=== PATIENT | male | born 1955 | race Caucasian/White ===

== ENCOUNTER 2023-06-24 05:34 | Emergency (ER) | payer MEDICAID, SELFPAY ==
[2023-06-24 05:35] VITALS: BP 132/79; PULSE 111; RESP 26; TEMP 35.5; O2SAT 96; BMI 27.1
[2023-06-24 05:42] VITALS: BP 132/79; PULSE 111; RESP 23; TEMP 35.5; O2SAT 96
--- NOTE | 2023-06-24 05:42 | EKG12_ITS ---
Test Reason : SOB Blood Pressure : / mmHG Vent. Rate : 102 BPM Atrial Rate : 102 BPM P-R Int : 176 ms QRS Dur : 068 ms QT Int : 350 ms P-R-T Axes : 047 002 048 degrees QTc Int : 456 ms Sinus tachycardia Septal infarct , age undetermined Abnormal ECG Confirmed by DEWAYNE GUTIERREZ, CELIA ([id number]), science editor JORGE HER ([id number]) on 06/24/2023 1:14:29 PM Referred By: LETICIA Confirmed By:CELIA BUCHANAN MD
--- NOTE | 2023-06-24 05:43 | ED.VIS.DYS ---
HPI History of Present Illness Chief Complaint: Shortness of Breath Informant: patient and EMS Narrative Narrative: Patient presents by EMS for dyspnea that started yesterday less than 24 hours ago, gradually worsening. He is coughing with some sputum production. Has chills, sweats, no chest discomfort or peripheral edema/orthopnea. No history of lung or heart problems that he knows of, including COPD, although his past medical history in the EMR shows a history of COPD. Relatively poor historian. 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 EMS states they were not able to get a great waveform due to cold fingers, similar to our staff upon initial evaluation, but they were detecting pulse ox in the 70s initially. They gave him oxygen via a duo nebulizer treatment prior to arrival. [facility] Medical History Alcohol abuse COPD (chronic obstructive pulmonary disease) Home Medications albuterol sulfate 2.5 mg/3 mL (0.083 %) solution for nebulization 2.5 mg continuous nebulization Q4H PRN shortness of breath or wheezing 06/24/23 [History Last Taken Unknown] albuterol sulfate 90 mcg/actuation aerosol inhaler 2 inh inhalation Q4H PRN shortness of breath or wheezing 06/24/23 [History Last Taken Unknown] azithromycin 250 mg tablet 250 mg PO DAILY 5 days #6 TABLETS 06/24/23 [Rx Last Taken Unknown] lisinopril 20 mg tablet 20 mg PO DAILY 06/24/23 [History Last Taken Unknown] prednisone 20 mg tablet 40 mg (2 x 20 mg) PO DAILY #12 TABLETS 06/24/23 [Rx Last Taken Unknown] rosuvastatin 5 mg tablet 5 mg PO QHS 06/24/23 [History Last Taken Unknown] Allergy/AdvReac Type Severity Reaction Status Date / Time pork derived (porcine) AdvReac Vomiting Verified 06/24/23 05:44 Social History Smoking Status: Former smoker ROS ROS ED Constitutional Constitutional ED: Reports chills, fatigue, malaise and sweats Eyes Eyes: Denies change in vision or diplopia ENT ENT ED: Denies rhinorrhea or sore throat Cardiovascular Cardiovascular: Denies chest pain, orthopnea, palpitations, pedal edema or radiating jaw, neck or arm pain Respiratory/Chest Respiratory/Chest: Reports cough and dyspnea; Denies orthopnea or sputum Gastrointestinal Gastrointestinal: Denies abdominal pain, diarrhea, nausea or vomiting Genitourinary Genitourinary ED: Denies dysuria or hematuria Musculoskeletal Musculoskeletal: Denies back pain or neck pain Integumentary Denies abscess or rash Neurologic Neurologic: Denies headache(s), paresthesias or weakness Psychiatric Psychiatric: Denies anxiety or suicidal thoughts EXAM Physical Exam Const Vital Signs: 06/24/23 05:35 06/24/23 05:42 06/24/23 05:46 Temperature 96 F L 96 F L Temperature Source Temporal Temporal Pulse Rate 111 H 111 H Respiratory Rate 26 H 23 H Respiratory Effort Respiratory Pattern Blood Pressure 132/79 H 132/79 H Blood Pressure Mean 96 96 Pulse Ox 96 96 95 Oxygen Delivery Method Nasal Cannula Room Air 06/24/23 05:47 06/24/23 06:18 06/24/23 06:25 Temperature Temperature Source Pulse Rate 92 96 Respiratory Rate 19 H 16 Respiratory Effort Short of Breath Respiratory Pattern Normal Blood Pressure 120/66 Blood Pressure Mean 84 Pulse Ox 94 Oxygen Delivery Method Room Air Positive well nourished and well developed Constitutional Narrative: Mild respiratory distress General Appearance ED: well developed HEENT Reports moist mucous membranes normocephalic and atraumatic Eyes PERRL and EOMs intact bilaterally Neck full ROM, no lymphadenopathy, supple, no meningeal signs and no JVD Resp Resp Narrative: Mild respiratory distress with diffuse symmetric expiratory wheezes and otherwise clear. Speaking in 5-7 word sentences approximately Cardio regular rate, regular rhythm and no murmurs Cardio Narrative: Mildly tachycardic GI non-tender and non-distended Auscultation: normoactive bowel sounds Palpation: soft Back/Spine no CVA tenderness General Back: other FROM Extremity normal to inspection General Extremety ED: Negative for edema, pulses abnormal or tenderness General Extremity: Negative for edema or pulses abnormal Neuro oriented x3, CN's II-XII intact bilaterally and no sensory deficits noted Sensorium / Orientation: awake and alert Motor Exam: general weakness Psych mental status grossly normal Skin no rashes or lesions noted and no wounds MDM MDM MDM Narrative Medical decision making narrative: Patient likely having a COPD exacerbation, pneumonia considered, COVID, influenza, RSV since we have been seeing a lot of all 3 of those, also potentially cardiac etiologies such as acute coronary syndrome and/or congestive heart failure. Basically the workup supports a COPD exacerbation without pneumonia, COVID, influenza, or RSV, his troponin is within normal limits, and his BNP is in the double digits well within normal limits to rule out acute decompensated congestive heart failure. 1 view chest x-ray my interpretation shows no acute pneumonia, COPD hyperexpansion pattern is noted. EKG is unremarkable. A VBG was obtained initially and shows an acute respiratory acidosis, but his oxygenation on pulse oximetry after we got good readings and warmed him up is very good. I considered placing him on BiPAP, however he has very large full ramos, so a good seal would be very unlikely to occur and since he was responding to treatment, we continued observing him. After a series of nebulizer treatments and Solu-Medrol, he is breathing much better, able to ambulate without distress or hypoxemia, and conversive in full sentences. I offered admission he declines and prefers to go home. Uncomfortable with this. Will prescribe him prednisone and broad-spectrum antibiotics and advised close outpatient follow-up and he is comfortable with that plan we discussed reasons to return. Lab Data Attestation: I reviewed the patient's lab results. Labs: Laboratory Results - last 24 hr 06/24/23 05:53 WBC 10.2 RBC 4.70 Hgb 13.8 Hct 41.9 MCV 89.1 MCH 29.4 MCHC 32.9 RDW Std Deviation 43.2 RDW Coeff of Maria Luisa 13.4 Plt Count 182 MPV 9.6 Immature Gran % (Auto) 0.200 Neut % (Auto) 62.5 Lymph % (Auto) 25.0 [place] % (Auto) 5.1 Eos % (Auto) 6.6 H Baso % (Auto) 0.6 Absolute Neuts (auto) 6.4 Absolute Lymphs (auto) 2.55 Nucleated RBC % 0 Sodium 139 Potassium 4.1 Chloride 106 Carbon Dioxide 27.0 Anion Gap 6 BUN 23 H Creatinine 1.15 Estim Creat Clear Calc 63.66 Est GFR (MDRD) Af Amer 81 Est GFR (MDRD) Non-Af 67 BUN/Creatinine Ratio 20.0 Glucose 218 H Calcium 9.0 Troponin I High Sens 57 B-Natriuretic Peptide 39.7 ABG Data ABG results: ABG 06/24/23 06:04 Specimen Type RICA Sample Site Not entered VBG pH 7.21 L VBG pO2 36 VBG HCO3 25 VBG Total CO2 27 VBG O2 Sat (Calc) 55 VBG Base Excess -3 L POC Mix VBG pCO2 Pt Tmp 62.0 H O2 Delivery Device Not entered Rhythm Strip Rhythm Strip: Sinus Tach Rate: 105 Ectopy: None EKG Initial EKG: Attestation: I personally reviewed and interpreted this EKG as follows: Interpretation: No Acute Injury Pattern and Sinus Tachycardia Discharge Plan Triage Chief Complaint: Shortness of Breath ED Provider: Martin Mora Dx/Rx/DC Orders Clinical Impression: Acute bronchitis, Acute exacerbation of chronic obstructive pulmonary disease Instructions: ED COPD Flare Prescriptions: New azithromycin [azithromycin] 250 mg tablet 250 mg PO DAILY 5 Days Qty: 6 0RF Rx Instructions: double dose on day #1 prednisone 20 mg tablet 40 mg PO DAILY Qty: 12 0RF No Action albuterol sulfate 2.5 mg /3 mL (0.083 %) solution for nebulization 2.5 mg continuous nebulization Q4H PRN (Reason: shortness of breath or wheezing) Patient Comments: Use 3 mL via nebulizer every 4 hours as needed for wheezing/shortness of breath. Use over 5-15minutes. lisinopril 20 mg tablet 20 mg PO DAILY Patient Comments: Take 1 tablet by mouth once daily. albuterol sulfate 90 mcg/actuation HFA aerosol inhaler 2 inh INHALATION Q4H PRN (Reason: shortness of breath or wheezing) rosuvastatin 5 mg tablet 5 mg PO QHS Primary Care Provider: Jagdeep Magaña Referrals: Jagdeep Magaña, [Primary Care Provider] - 3-5 Days if not improving Disposition Disposition: Home, Self Care
[2023-06-24 05:46] VITALS: O2SAT 95
--- NOTE | 2023-06-24 06:00 | RAD_ITS ---
STUDY: X-RAY CHEST REASON FOR EXAM: Male, 68 years old. Cough sob TECHNIQUE: Single AP portable view of the chest. COMPARISON: None. FINDINGS: EKG leads overlie the chest The lungs are clear and expanded. There is no demonstrated pleural abnormality. Normal size heart. Normal mediastinum and shannan. Normal visualized pulmonary arteries. Normal visualized aortic arch and descending thoracic aorta. There are diffuse degenerative changes of the visualized thoracic spine. Normal visualized ribs, clavicles, and shoulders. There is no demonstrated abnormality of the visualized soft tissue structures of the upper abdomen. RAD/Chest 1 View (Portable) IMPRESSION: No acute pulmonary process Electronically Signed: Manish Nova MD at 8:18 EST ,
[2023-06-24 06:08] LABS: Blood Gas Specimen Type VEN; O2 Delivery Device Not entered; SITE Not entered; VBG BASE EXCESS -3 mmol/L (-1.0-3.5); VBG Bicarbonate 25 mmol/L (22-26); VBG PO2 36 mmHg (25-40); VBG SO2 55 % (50-70); VBG TCO2 27 mmol/L (23-33); VBG pH 7.21 (7.32-7.42)
[2023-06-24 06:14] LABS: Absolute Lymphocyte Count 2.55 X10^3/uL (0.83-4.51); Absolute Neutrophil Count 6.4 X10^3/uL (2.0-7.7); Basophil# 0.06 X10^3/uL; Basophil% 0.6 % (0-1); Eosinophil# 0.67 X10^3/uL; Eosinophils% 6.6 % (0-5); Hematocrit 41.9 % (40-54); Hemoglobin 13.8 g/dL (13.0-16.5); Lymphocyte # 2.55 X10^3/ul (0.83-4.51); Mean Corp Hgb Conc 32.9 g/dL (32-36); Mean Corpuscular Hgb 29.4 pg (27.0-32.0); Mean Corpuscular Volume 89.1 fL (80-94); Mean Platelet Vol. 9.6 fl (6.2-12.0); Monocyte# 0.52 X10^3/uL; Monocyte% 5.1 % (0-10); NRBC Flagged by Analyzer 0 % (0-5); Neutrophil # 6.39 X10^3/uL (2.7-7.7); Neutrophil % 62.5 % (47-70); Platelet Count 182 K/mm3 (150-450); RBC Distribution Width CV 13.4 % (11.6-14.6); RBC Distribution Width SD 43.2 fl (35.1-43.9); White Blood Count 10.2 K/mm3 (4.4-11.0)
[2023-06-24 06:18] VITALS: BP 120/66; PULSE 92; RESP 19; O2SAT 94
[2023-06-24] MEDS: Albuterol 2.5 MG/3 ML VIAL.NEB. INHALATION ×3 (06:23)
[2023-06-24 06:25] VITALS: PULSE 96; RESP 16
[2023-06-24 06:26] LABS: Anion Gap 6 (5-15); BUN 23 mg/dL (7-18); Chloride 106 mmol/L (98-107); Creatinine, Serum 1.15 mg/dL (0.70-1.30); EST Glomerular Filtration Rate 67 mL/min (>60); Est Glom Filt Rate - Afr Amer 81 mL/min (>60); Estimated Creatinine Clearance 63.66 ml/min; Glucose 218 mg/dL (74-106); Potassium 4.1 mmol/L (3.5-5.1); Sodium Level 139 mmol/L (136-145); Troponin-I HS 57 pg/mL (3.0-78.0)
--- NOTE | 2023-06-24 06:27 | ED.RN ---
Pt assisted to bed by EMS and nursing staff. When assisting pt with gown, a bed bug noted to be on pts pants. Bug collected and put in specimen cup for EVS. Upon getting pt checking in more, numerous baby bed bugs noted on pts feet and pants.
[2023-06-24 06:28] LABS: BNP,B-Type NATRIURETIC PEPTIDE 39.7 pg/mL (0-100)
== END 2023-06-24 07:46 | disposition home or self-care (01) ==
PROVIDERS: Emergency Provider Emergency Medicine; PCP Student in an Organized Health Care Education/Training Program; Visit Provider Emergency Medicine
DX: J20.9 Acute bronchitis, unspecified (principal); J44.1 Chronic obstructive pulmonary disease with (acute) exacerbation; Z79.899 Other long term (current) drug therapy; Z87.891 Personal history of nicotine dependence
CPT/HCPCS: 71045; 80048; 82803; 83880; 84484; 85025; 87428; 87807; 93005; 94640; 99284; A4216